=== PATIENT | male | born 1955 | race Native Hawaiian/Other Pacific Islander ===

== ENCOUNTER 2017-06-26 14:19 | Emergency (ER) | payer OTHER ==
[2017-06-26 14:32] VITALS: BP 163/97; PULSE 89; RESP 22; TEMP 97.6; O2SAT 98
--- NOTE | 2017-06-26 15:04 | ED PDOC ---
Lower Extremity Pain/Injury Time Seen by Provider: 06/26/17 15:00 Chief Complaint (Nursing): Lower Extremity Problem/Injury Chief Complaint (Provider): BILATERAL FOOT WOUND History Per: Patient (62 Y/O MALE H/O DIABETES HERE WITH OPEN WOUNDS ON FEET X 1 WEEK. NO FEVERS/CHILLS/N/V. CURRENTLY WITHOUT PMD.) Past Medical History Reviewed: Historical Data, Nursing Documentation, Vital Signs Vital Signs: Last Vital Signs Temp 97.6 F 06/26/17 14:30 Pulse 89 06/26/17 14:30 Resp 22 06/26/17 14:30 BP 163/97 H 06/26/17 14:30 Pulse Ox 98 06/26/17 14:30 - Family History Family History: States: No Known Family Hx - Allergies Allergies/Adverse Reactions: Allergies Allergy/AdvReac Type Severity Reaction Status Date / Time No Known Allergies Allergy Verified 06/26/17 14:58 Review of Systems ROS Statement: Except As Marked, All Systems Reviewed And Found Negative Musculoskeletal: Positive for: Foot Pain Physical Exam - Reviewed Nursing Documentation Reviewed: Yes Vital Signs Reviewed: Yes - Physical Exam Appears: Positive for: Well, Non-toxic, No Acute Distress Head Exam: Positive for: ATRAUMATIC, NORMAL INSPECTION, NORMOCEPHALIC Skin: Positive for: Normal Color, Warm, DRY Eye Exam: Positive for: EOMI, Normal appearance, PERRL ENT: Positive for: Normal ENT Inspection Neck: Positive for: Normal, Painless ROM Cardiovascular/Chest: Positive for: Regular Rate, Rhythm Respiratory: Positive for: CNT, Normal Breath Sounds Gastrointestinal/Abdominal: Positive for: Normal Exam, Bowel Sounds, Soft Back: Positive for: Normal Inspection Extremity: Positive for: Normal ROM, Other (BILATERAL FEET WITH ONCHOMYCHOTIC TOENAILS; SUBUNGUAL HEMATOMA SECOND DIGIT RIGHT FOOT. OPEN WOUNDS DISTAL TOES. TINEA PEDIS INTERWEBSPACES OF FIRST/SECOND TOE RIGHT FOOT. NO SIGNS OF CELLULITIS.) Neurologic/Psych: Positive for: Alert, Oriented - Laboratory Results Result Diagrams: 06/26/17 15:20 06/26/17 15:20 - ECG O2 Sat by Pulse Oximetry: 98 - Progress ED Course And Treament: D/W PODIATRY RESIDENT 15:04 xry reviewed by resident Seen and evaluated by podiatry resident with blister debrided. Will advise on wound cleaning and f/u with podiatry clinic. Disposition - Clinical Impression Clinical Impression: Wound, open, foot - Patient ED Disposition Is Patient to be Admitted: No - Disposition Referrals: Podiatry Clinic [Outside] Disposition: Routine/Home Disposition Time: 17:19 Condition: FAIR Additional Instructions: PLEASE USE BETADIENE TO CLEAN YOUR WOUNDS D/W PODIATRY Instructions: Wound Care Forms: [employer] (Albanian)
[2017-06-26 15:24] LABS: BASO # 0.1 K/uL (0.0-0.2); BASO % 0.6 % (0.0-2.0); EOS # 0.1 K/uL (0.0-0.7); EOS % 0.8 % (0.0-4.0); HEMOGLOBIN 12.3 g/dL (12.0-18.0); LYMPH # 1.3 K/uL (1.0-4.3); LYMPH % 14.6 % (20.0-40.0); MEAN CELL VOLUME 90.5 fl (80.0-94.0); MEAN CORPUSCULAR HGB CONC 34.2 g/dL (33.0-37.0); MEAN PLATELET VOLUME 7.4 fl (7.2-11.7); MONO % 11.4 % (0.0-10.0); NEUT # 6.2 K/uL (1.8-7.0); NEUT % 72.6 % (50.0-75.0); NRBC % 0.1 % (0.0-0.0); RBC 3.97 Mil/uL (4.40-5.90); RED CELL DISTRIBUTION WIDTH 13.8 % (11.5-14.5); WHITE BLOOD COUNT 8.6 K/uL (4.8-10.8)
[2017-06-26 15:33] LABS: ALB/GLOB RATIO 1.3 (1.0-2.1); ALBUMIN 4.2 g/dL (3.5-5.0); ALT/SGPT 30 U/L (21-72); AST/SGOT 34 U/L (17-59); BLOOD UREA NITROGEN 12 mg/dl (9-20); CALCIUM 9.1 mg/dL (8.4-10.2); GFR AFRICAN-AMERICAN > 60; GFR NON-AFRICAN AMERICAN > 60
--- NOTE | 2017-06-26 16:28 | RAD ---
PROCEDURE: Bilateral Feet Radiographs. HISTORY: OPEN WOUND ON FEET COMPARISON: None. FINDINGS: BONES: Right Foot: Normal. No fracture. Left Foot: Normal. No fracture. Small Achilles tendon calcaneal spur. JOINTS: Right Foot: Normal. No osteoarthritis. Left Foot: Normal. No osteoarthritis. SOFT TISSUES: Right Foot: Normal. Left Foot: Normal. OTHER FINDINGS: None. IMPRESSION: No evidence of acute osteomyelitis or significant soft tissue abnormality.
--- NOTE | 2017-06-26 17:29 | CP.PCM.PN ---
Subjective - Date & Time of Evaluation Date of Evaluation: 06/26/17 Time of Evaluation: 17:22 - Subjective Subjective: Consult note - Dr. Hooks 62 year old male patient with PMHx of DM was seen and evaluated at bedside for blistering of the forefoot bilaterally. 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 Patient also reports that he also deals with a lot of boxes and kicks them around and smashes them at work. Patient states that he also loves walking and walks a lot everywhere in an orthopedic shoe. Patient denies of any recent pedal trauma. Patient reports that he has been dressing the blisters in bactroban cream at home. Patient denies of any other treatment prior to coming here. Patient denies of any recent F/N/V/C/SOB/CP/headache/diarrhea. Patient denies of any other pedal complains at this time. PMHx: DM PSHx: Denies Allergies: N.K.D.A SHx: Denies smoking, EtOH or illicit drug usage Objective - Vital Signs/Intake and Output Vital Signs (last 24 hours): Temp Pulse Resp BP Pulse Ox 97.6 F 89 22 163/97 H 98 06/26/17 14:30 06/26/17 14:30 06/26/17 14:30 06/26/17 14:30 06/26/17 17:21 - Labs Labs: 06/26/17 15:20 06/26/17 15:20 - Constitutional Appears: Well, Non-toxic, No Acute Distress - Extremities Exam Additional comments: Bilateral LE focused exam: VASC: DP/PT pulses are palpable 2/4 B/L. Cap refill time: < 3 seconds to all digits. Skin temperature warm to cool from proximal to distal. no pitting or non -pitting edema noted at on LE bilaterally DERM: Right foot plantar forefoot appears to have a bullae measuring approx 3 cm x 4 cm with macerated skin extension into the 1st interspace, nail bed and plate at the 2nd digit of the right foot appears hyperpigmented with subungual hematoma, distal aspect of the left 2nd digit shows lanced bullae with loose epidermal layer, mild serous drainage noted from the site (no greater than 2-3 cc), no tunneling, no probe to bone, no malodor, no darnell-wound erythema noted, no clinical suspicion of active infection NEURO: Epicritic and protective sensation mildly diminished ORTHO: mild tenderness on palpation of the 2nd digit - Neurological Exam Neurological Exam: Alert, Awake, Oriented x3 - Psychiatric Exam Psychiatric exam: Normal Affect, Normal Mood Assessment and Plan - Assessment and Plan (Free Text) Assessment: 62 year old male patient evaluated at bedside for bilateral trench foot Plan: Patient seen and evaluated Patient discussed in details with attending Dr. Hooks Labs, vitals and chars reviewed - afebrile and no leukocytosis Wound cleaned using sterile betadine- saline mixture and dressed using betadine , DSD Patient advised to change dressing on daily basis and keep the dressing clean, dry and intact Patient educated to prevent from wounded site from getting wet Patient provided a surgical shoe and educated to remain in a surgical shoe at all time when weightbearing - educated to prevent from unnecessary walking Patient educated to return to ED if systemic signs arises Patient educated of proper diabetic diet control and control glucose level Patient to follow up in the podiatry clinic Patient demonstrated verbal understanding of the plan Thank you for the podiatry consult and allowing to take part in patient care
== END 2017-06-26 17:34 | disposition home or self-care (01) ==
LOC: H.ER 14:19
DX: S91.301A Unspecified open wound, right foot, initial encounter (principal); X58.XXXA Exposure to other specified factors, initial encounter; E11.9 Type 2 diabetes mellitus without complications

== ENCOUNTER 2017-07-13 15:04 | Emergency (ER) | payer OTHER ==
[2017-07-13 15:18] VITALS: BP 151/87; PULSE 90; RESP 18; TEMP 98.4; O2SAT 100
--- NOTE | 2017-07-13 16:21 | ED PDOC ---
Lower Extremity Pain/Injury Time Seen by Provider: 07/13/17 15:05 Chief Complaint (Nursing): Lower Extremity Problem/Injury Chief Complaint (Provider): Lower Extremity Problem/Injury History Per: Patient History/Exam Limitations: no limitations Onset/Duration Of Symptoms: Persistent Current Symptoms Are (Timing): Still Present Additional Complaint(s): 62 year old male with medical history of diabetes, presents to the emergency department with a complaint of persistent bilateral foot pain associated with open wounds and ulcers. Patient was recently seen in ED on 06/26/17 for similar symptoms but have recently been put into the [place] hospital system. PMD: none provided Past Medical History Reviewed: Historical Data, Nursing Documentation, Vital Signs Vital Signs: Last Vital Signs Temp 98.4 F 07/13/17 15:14 Pulse 90 07/13/17 15:14 Resp 18 07/13/17 15:14 BP 151/87 H 07/13/17 15:14 Pulse Ox 100 07/13/17 15:14 - Medical History PMH: Diabetes - Surgical History Surgical History: No Surg Hx - Family History Family History: States: Unknown Family Hx - Social History Current smoker - smoking cessation education provided: No Ex-Smoker (has not smoked in the last 12 months): No Alcohol: None Drugs: Denies - Allergies Allergies/Adverse Reactions: Allergies Allergy/AdvReac Type Severity Reaction Status Date / Time No Known Allergies Allergy Verified 06/26/17 14:58 Review of Systems ROS Statement: Except As Marked, All Systems Reviewed And Found Negative Musculoskeletal: Positive for: Foot Pain (bilateral with ulceration) Physical Exam - Reviewed Nursing Documentation Reviewed: Yes Vital Signs Reviewed: Yes - Physical Exam Appears: Positive for: Non-toxic, Uncomfortable Head Exam: Positive for: ATRAUMATIC, NORMAL INSPECTION, NORMOCEPHALIC Respiratory: Positive for: Normal Breath Sounds, Decreased Breath Sounds. Negative for: Wheezing, Respiratory Distress Gastrointestinal/Abdominal: Positive for: Normal Exam, Soft. Negative for: Tenderness Extremity: Positive for: Other (bilateral foot ulcers. R toe deroofed bullae. minimal erythme surrounding the wound.) Neurologic/Psych: Positive for: Alert (x3), Oriented - Laboratory Results Result Diagrams: 07/13/17 16:15 07/13/17 16:40 - ECG O2 Sat by Pulse Oximetry: 100 (RA) Pulse Ox Interpretation: Normal Medical Decision Making Medical Decision Making: Initial Impression: Bilateral foot pain, atraumatic Initial Plan: * CMP * CBC * Xray foot (SABRINA) * Blood culture ____ Time: 1700 --Patient is endorsed to Dr. Laura Spann. Pending ED work-up and podiatry consult. Scribe Attestation: Documented by Michaela Johnston, acting as a scribe for Luis Madera MD. Provider Scribe Attestation: All medical record entries made by the Scribe were at my direction and personally dictated by me. I have reviewed the chart and agree that the record accurately reflects my personal performance of the history, physical exam, medical decision making, and the department course for this patient. I have also personally directed, reviewed, and agree with the discharge instructions and disposition. Disposition - Clinical Impression Clinical Impression: Wound, open, foot - Patient ED Disposition Is Patient to be Admitted: Transfer of Care - Disposition Referrals: Podiatry Clinic [Outside] - 07/22/17 (FOLLOW UP WITH CLINIC NEXT THURSDAY) Disposition: Transfer of Care Disposition Time: 17:00 Condition: STABLE Instructions: Diabetic Foot Ulcer (DC) Patient Signed Over To: Laura Spann
--- NOTE | 2017-07-13 16:51 | CP.PCM.CON ---
History of Present Illness - History of Present Illness History of Present Illness: Podiatry Consult Note - Dr. Glez 62 year old male patient PMHx of NIDDM seen and evaluated in ED for bilateral lower extremity ulcerations and deroofed blister to right great toe. Patient hemodynamically stable and NAD. present at bedside. Patient states yesterday he stubbed his great toe and developed a blister; denies any pain to the area. Admits to deroofing the blister, has since not seen any drainage from his toe. Of note, patient presented to [facility] ED approximately 2 weeks ago for similar reasons. Patient states he has been doing daily dressing changes to both feet. Offers no other complaints. Denies N/V/F/D/C/SOB/calf pain. Review of Systems - Review of Systems All systems: reviewed and no additional remarkable complaints except (as per HPI ) Past Patient History - Past Social History Alcohol: None Drugs: Denies - CARDIAC Hx Cardiac Disorders: No - PULMONARY Hx Respiratory Disorders: No - NEUROLOGICAL Hx Neurological Disorder: No - HEENT Hx HEENT Problems: No - ENDOCRINE/METABOLIC Hx Diabetes Mellitus Type 2: Yes - PSYCHIATRIC Hx Psychophysiologic Disorder: No Hx Substance Use: No - SURGICAL HISTORY Hx Surgeries: No Meds Allergies/Adverse Reactions: Allergies Allergy/AdvReac Type Severity Reaction Status Date / Time No Known Allergies Allergy Verified 06/26/17 14:58 Physical Exam - Constitutional Appears: Well, Non-toxic, No Acute Distress - Extremities Exam Additional comments: Bilateral LE focused exam: VASC: DP/PT pulses are palpable 2/4 B/L. Cap refill time: < 3 seconds to all digits. Skin temperature warm to cool from proximal to distal. Mild perimalleolar edema noted b/l. DERM: Right hallux noted to have a deroofed bullae extending into nail plate - nail 1 from nail bed, 100% granular dermis. Right foot plantar forefoot appears to have a previously lanced bullae measuring approx 3 cm x 4 cm with intact roof. Nail bed and plate at the 2nd digit of the right foot appears hyperpigmented with subungual hematoma. Full thickness ulceration extending down to dermis noted sub 2nd met head, measuring approximately 2 x 0.5 x 0.1 cm - ulcer noted to have a mixed fibrogranular base and hyperkeratotic rim; no drainage, no purulence, no fluctuance, no malodor. Distal aspect of the left 2nd digit noted to have a full-thickness ulceration extending down to dermis measuring approximately 0.3 x 0.3 x 0.1cm - noted to have a granular base and hyperkeratotic rim; no drainage, no purulence, no fluctuance, no malodor NEURO: Epicritic and protective sensation mildly diminished ORTHO: No pain on palpation b/l. Muscle strength 5/5 for all dorsiflexors, plantarflexors, inverters, and everters. - Neurological Exam Neurological exam: Alert, Oriented x3 - Psychiatric Exam Psychiatric exam: Normal Affect, Normal Mood Results - Vital Signs Recent Vital Signs: Last Vital Signs Temp 98.4 F 07/13/17 15:14 Pulse 90 07/13/17 15:14 Resp 18 07/13/17 15:14 BP 151/87 H 07/13/17 15:14 Pulse Ox 100 07/13/17 16:25 - Labs Result Diagrams: 07/13/17 16:15 07/13/17 16:40 Assessment & Plan - Assessment and Plan (Free Text) Assessment: 62 year old male with multiple ulcerations secondary to diabetic polyneuropathy Plan: Patient seen and evaluated Discussed with attending, Dr. Glez Afebrile, WBC 7.4 Wounds cleansed using sterile saline, bacitracin applied to wounds and dressed with DSD Advised patient to change dressing QD - bacitracin, DSD Continue WBAT in surgical shoe Advised patient to follow up with Dr. Glez in the podiatry clinic next 07/22/17 Stable per podiatry standpoint Thank you for the consult, please reconsult podiatry as needed
--- NOTE | 2017-07-13 16:58 | RAD ---
PROCEDURE: Bilateral Feet Radiographs. HISTORY: BILATERAL FOOT ULCER COMPARISON: 06/26/2017 bilateral feet FINDINGS: BONES: Right Foot: Normal. No fracture. Left Foot: Normal. No fracture. JOINTS: Right Foot: Normal. No osteoarthritis. Left Foot: Normal. No osteoarthritis. SOFT TISSUES: Right Foot: Normal. Left Foot: Normal. OTHER FINDINGS: None. IMPRESSION: No acute findings related to/accounting for the clinical presentation. No significant interval change compared to the prior examination(s).
[2017-07-13 17:14] LABS: BASO # 0.1 K/uL (0.0-0.2); BASO % 0.7 % (0.0-2.0); EOS # 0.2 K/uL (0.0-0.7); EOS % 2.2 % (0.0-4.0); HEMOGLOBIN 12.7 g/dL (12.0-18.0); LYMPH # 1.5 K/uL (1.0-4.3); LYMPH % 19.9 % (20.0-40.0); MEAN CELL VOLUME 91.7 fl (80.0-94.0); MEAN CORPUSCULAR HEMOGLOBIN 30.6 pg (27.0-31.0); MEAN CORPUSCULAR HGB CONC 33.4 g/dL (33.0-37.0); MEAN PLATELET VOLUME 7.7 fl (7.2-11.7); MONO # 0.8 K/uL (0.0-0.8); NEUT # 4.9 K/uL (1.8-7.0); NEUT % 66.2 % (50.0-75.0); NRBC % 0.1 % (0.0-0.0); RBC 4.14 Mil/uL (4.40-5.90); RED CELL DISTRIBUTION WIDTH 13.5 % (11.5-14.5); WHITE BLOOD COUNT 7.4 K/uL (4.8-10.8)
[2017-07-13 17:33] LABS: ALB/GLOB RATIO 1.3 (1.0-2.1); ALBUMIN 4.1 g/dL (3.5-5.0); ALT/SGPT 47 U/L (21-72); AST/SGOT 51 U/L (17-59); BLOOD UREA NITROGEN 10 mg/dl (9-20); CALCIUM 9.3 mg/dL (8.4-10.2); GFR AFRICAN-AMERICAN > 60; GFR NON-AFRICAN AMERICAN > 60
--- NOTE | 2017-07-13 18:49 | ED PDOC ---
- Laboratory Results Result Diagrams: 07/13/17 16:15 07/13/17 16:40 - ECG O2 Sat by Pulse Oximetry: 100 (RA) - Progress ED Course And Treament: 5p Rec'd endorsement from Dr potter. Pt with foot ulcers due to diabetes. Pending labs and podiatry evaluation. 7p Evaluated by podiatry. No emergnely significant lab abnormalitieys. Stable for DC. Disposition - Clinical Impression Clinical Impression: Wound, open, foot - POA Present On Arrival: None - Disposition Referrals: Podiatry Clinic [Outside] - 07/22/17 (FOLLOW UP WITH CLINIC NEXT THURSDAY) Disposition: Routine/Home Disposition Time: 18:49 Condition: STABLE Instructions: Diabetic Foot Ulcer (DC)
== END 2017-07-13 19:20 | disposition home or self-care (01) ==
LOC: H.ER 15:04
DX: E11.622 Type 2 diabetes mellitus with other skin ulcer (principal); L97.529 Non-pressure chronic ulcer of other part of left foot with unspecified severity; L97.519 Non-pressure chronic ulcer of other part of right foot with unspecified severity

== ENCOUNTER 2018-02-01 15:28 | Emergency (ER) | payer SELFPAY ==
[2018-02-01 15:41] VITALS: TEMP 98.3
--- NOTE | 2018-02-01 15:58 | ED PDOC ---
Lower Extremity Pain/Injury Time Seen by Provider: 02/01/18 15:50 Chief Complaint (Nursing): Lower Extremity Problem/Injury Chief Complaint (Provider): Foot wound History Per: Patient History/Exam Limitations: no limitations Additional Complaint(s): Pt reports pain to top of L foot X 4 days, today noticed open area to bottom of same foot. Denies fever. Past Medical History Reviewed: Nursing Documentation, Vital Signs Vital Signs: Last Vital Signs Temp 98.3 F 02/01/18 15:40 Pulse 84 02/01/18 15:40 Resp 20 02/01/18 15:40 BP 145/80 02/01/18 15:40 Pulse Ox 100 02/01/18 15:40 - Medical History PMH: Diabetes - Family History Family History: States: Unknown Family Hx - Living Arrangements Living Arrangements: With Family - Social History Current smoker - smoking cessation education provided: No Alcohol: None - Allergies Allergies/Adverse Reactions: Allergies Allergy/AdvReac Type Severity Reaction Status Date / Time Penicillins Allergy RASH Verified 02/01/18 15:42 Review of Systems Constitutional: Negative for: Fever, Chills Musculoskeletal: Positive for: Foot Pain Skin: Positive for: Lesions. Negative for: Rash Physical Exam - Reviewed Nursing Documentation Reviewed: Yes Vital Signs Reviewed: Yes - Physical Exam Appears: Positive for: Well, No Acute Distress Skin: Positive for: Normal Color, Warm, Dry Extremity: Positive for: Normal ROM, Tenderness, Other (L FOOT: open blister distal plantar aspect, 3X3 cm, no active drainage, no vesicles, macerated skin) . Negative for: Swelling - Laboratory Results Result Diagrams: 02/01/18 16:02 02/01/18 16:02 - ECG O2 Sat by Pulse Oximetry: 100 Medical Decision Making Medical Decision Makin yo male with open blister to L foot. - labs - XR L foot - Podiatry consult Accession No. : [id number] Patient Name / ID : PATRICIA GONZALEZ / [id number] Exam Date : 02/01/2018 16:27:13 ( Approved ) Study Comment : Sex / Age : M / 62Y Creator : Naeem Avila MD Dictator : Naeem Avila MD Spin Instructor : Sports Trainer : Naeem Avila MD Approver2 : Report Date : 02/01/2018 16:55:20 My Comment : This report is currently processing and HAS NOT BEEN OFFICIALLY SIGNED BY THE PHYSICIAN - ESTIMATED TIME OF APPROVAL IS 02/01/2018 17:01. Date of service: 02/01/2018 PROCEDURE: Left Foot Radiographs. HISTORY: Wound COMPARISON: None. FINDINGS: BONES: No acute fracture. JOINTS: Normal. SOFT TISSUES: Normal. OTHER FINDINGS: Achilles enthesophyte. IMPRESSION: No demonstrated fracture or dislocation. 16:45 Pt evaluated by Podiatry, dressing placed. [facility] Disposition - Clinical Impression Clinical Impression: Superficial ulcer of skin - Patient ED Disposition Is Patient to be Admitted: No - Disposition Disposition: Routine/Home Disposition Time: 16:57 Condition: GOOD Additional Instructions: [facility]. Instructions: Foot Care for Diabetics, Diabetic Foot Ulcer (DC) Forms: [employer] (Libyan)
[2018-02-01 16:07] LABS: BASO # 0.1 K/uL (0.0-0.2); BASO % 0.9 % (0.0-2.0); EOS # 0.2 K/uL (0.0-0.7); EOS % 2.2 % (0.0-4.0); HEMOGLOBIN 13.3 g/dL (12.0-18.0); LYMPH # 1.6 K/uL (1.0-4.3); LYMPH % 19.3 % (20.0-40.0); MEAN CELL VOLUME 89.8 fl (80.0-94.0); MEAN CORPUSCULAR HEMOGLOBIN 31.1 pg (27.0-31.0); MEAN CORPUSCULAR HGB CONC 34.7 g/dL (33.0-37.0); MEAN PLATELET VOLUME 7.5 fl (7.2-11.7); MONO # 0.8 K/uL (0.0-0.8); MONO % 8.9 % (0.0-10.0); NEUT # 5.8 K/uL (1.8-7.0); NEUT % 68.7 % (50.0-75.0); NRBC % 0.1 % (0.0-0.0); RBC 4.27 Mil/uL (4.40-5.90); RED CELL DISTRIBUTION WIDTH 13.6 % (11.5-14.5); WHITE BLOOD COUNT 8.4 K/uL (4.8-10.8)
[2018-02-01 16:15] LABS: ALB/GLOB RATIO 1.2 (1.0-2.1); ALBUMIN 4.4 g/dL (3.5-5.0); BLOOD UREA NITROGEN 16 mg/dl (9-20); CALCIUM 9.3 mg/dL (8.4-10.2); GFR NON-AFRICAN AMERICAN > 60
[2018-02-01 16:33] LABS: ALT/SGPT 23 U/L (21-72); AST/SGOT 26 U/L (17-59)
[2018-02-01] MEDS ORDERED: Povidone Iodine Oint 10% Foilpak UD ONE (16:38)
--- NOTE | 2018-02-01 16:56 | RAD ---
Date of service: 02/01/2018 PROCEDURE: Left Foot Radiographs. HISTORY: Wound COMPARISON: None. FINDINGS: BONES: No acute fracture. JOINTS: Normal. SOFT TISSUES: Normal. OTHER FINDINGS: Achilles enthesophyte. IMPRESSION: No demonstrated fracture or dislocation.
--- NOTE | 2018-02-01 17:07 | CP.PCM.CON ---
History of Present Illness - History of Present Illness History of Present Illness: Podiatry consult note for Dr. Copeland 62 y/o male with PMHx of diabetes was seen and evaluated in the ED due to complaints of a painful superficial ulceration to the bottom of the left foot. Patient states he developed pain in the foot 4 days ago, and then today noticed the wound to the bottom of his foot. Patient states he saw some bleeding to his socks. Patient regularly goes to the [facility] in [place] for podiatric care. Patient's last appointment was on of last week and states he was being treated for a wound to the right foot. Patient denies any other pedal complaints, and denies F/N/V/SOB/chills. PMHx: Diabetes Allergies: Penicillin Social Hx: current smoker Review of Systems - Review of Systems All systems: reviewed and no additional remarkable complaints except Review of Systems: As per HPI Past Patient History - Past Social History Alcohol: None - CARDIAC Hx Cardiac Disorders: No - PULMONARY Hx Respiratory Disorders: No - NEUROLOGICAL Hx Neurological Disorder: No - HEENT Hx HEENT Problems: No - ENDOCRINE/METABOLIC Hx Diabetes Mellitus Type 2: Yes - PSYCHIATRIC Hx Psychophysiologic Disorder: No Hx Substance Use: No - SURGICAL HISTORY Hx Surgeries: No Meds Allergies/Adverse Reactions: Allergies Allergy/AdvReac Type Severity Reaction Status Date / Time Penicillins Allergy RASH Verified 02/01/18 15:42 Physical Exam - Constitutional Appears: Well, Non-toxic, No Acute Distress - Head Exam Head Exam: ATRAUMATIC, NORMOCEPHALIC - Extremities Exam Additional comments: Left Lower Extremity Exam VASC: DP and PT 2/4, CFT less than 3 seconds X 10, TG warm to cool within normal limits, no edema noted NEURO: diminished sensation DERM: irregularly shaped wound measuring 3 cm X 3 cm X 0.2 cm noted to the plantar aspect of the right foot at the level of the submetatarsals 2 and 3, wound base 100% granular, no drainage, negative probe to bone, no tunneling, no tracking, hyperkeratotic wound border noted, no maceration, minimal darnell-wound erythema noted, no clinical signs of infection discoloration noted to the dorsum of the foot, no open lesions ORTHO: diffuse pain on palpation dorsally, and pain on palpation submetatarsal 3, pain with range of motion at the 2nd and 3rd MTPJs, MSK otherwise 5/5 - Neurological Exam Neurological exam: Alert, Oriented x3 - Psychiatric Exam Psychiatric exam: Normal Affect, Normal Mood Results - Vital Signs Recent Vital Signs: Last Vital Signs Temp 98.3 F 02/01/18 15:40 Pulse 84 02/01/18 15:40 Resp 20 02/01/18 15:40 BP 145/80 02/01/18 15:40 Pulse Ox 100 02/01/18 16:57 - Labs Result Diagrams: 02/01/18 16:02 02/01/18 16:02 Labs: Laboratory Results - last 24 hr 02/01/18 02/01/18 02/01/18 15:59 16:02 16:02 WBC 8.4 RBC 4.27 L Hgb 13.3 Hct 38.3 MCV 89.8 MCH 31.1 H MCHC 34.7 RDW 13.6 Plt Count 251 MPV 7.5 Neut % (Auto) 68.7 Lymph % (Auto) 19.3 L [place] % (Auto) 8.9 Eos % (Auto) 2.2 Baso % (Auto) 0.9 Neut # (Auto) 5.8 Lymph # (Auto) 1.6 [place] # (Auto) 0.8 Eos # (Auto) 0.2 Baso # (Auto) 0.1 Sodium 138 Potassium 4.7 Chloride 99 Carbon Dioxide 28 Anion Gap 16 BUN 16 Creatinine 0.7 L Est GFR ( Amer) > 60 Est GFR (Non-Af Amer) > 60 POC Glucose (mg/dL) 119 H Random Glucose 122 H Calcium 9.3 Total Bilirubin 0.4 AST 26 ALT 23 Alkaline Phosphatase 41 Total Protein 8.1 Albumin 4.4 Globulin 3.7 Albumin/Globulin Ratio 1.2 Assessment/Plan - Assessment and Plan (Free Text) Assessment: 62 y/o male with PMHx of diabetes was seen and evaluated in the ED due to complaints of a painful superficial ulceration to the bottom of the left foot Plan: Patient seen and evaluated Plan discussed with Dr. Copeland Chart, labs and vitals reviewed- afebrile, absent leukocytosis Wound cleansed with saline and dressed with betadine, DSD Patient Foot X-ray- no fracture or dislocation, no signs of acute infection Patient states he will follow up at the [place] Patient thoroughly advised to keep dressing intact until the [facility], k eep it C/D/I. Patient to return to ED if any signs of infection, F/N/V/SOB/chills noted Patient demonstrated verbal understanding Patient has a surgical shoe for ambulation Thank you for the podiatry consult - Date & Time Date: 02/01/18 Time: 17:22
[2018-02-01 17:23] VITALS: BP 139/89; PULSE 80; RESP 16; O2SAT 99
== END 2018-02-01 17:24 | disposition home or self-care (01) ==
LOC: H.ER 15:28
DX: L97.529 Non-pressure chronic ulcer of other part of left foot with unspecified severity (principal); E11.621 Type 2 diabetes mellitus with foot ulcer; F17.200 Nicotine dependence, unspecified, uncomplicated; Z88.0 Allergy status to penicillin